=== PATIENT | female | born 1960 | race Caucasian/White ===

== ENCOUNTER 2024-05-04 08:19 | Emergency (ER) | payer BC ==
[2024-05-04 08:44] LABS: BASOPHILS ABSOLUTE AUTO 0.1 K/mm3 (0.0-0.2); EOSINOPHILS ABSOLUTE AUTO 0.2 K/mm3 (0.0-0.4); HEMATOCRIT 43.8 % (37.0-47.0); HEMOGLOBIN 14.6 gm/dl (12.0-16.0); IMMATURE GRAN ABSOLUTE AUTO 0.02 K/mm3 (0.00-0.05); IMMATURE GRAN PERCENT AUTO 0.3 % (0.0-0.4); LYMPHOCYTES ABSOLUTE AUTO 1.8 K/mm3 (1.0-4.8); LYMPHOCYTES PERCENT AUTO 28.6 % (24.0-44.0); MEAN CORPUSCULAR HEMOGLOBIN 29.1 pg (28.0-32.0); MEAN CORPUSCULAR HGB CONC 33.3 g/dl (32.0-36.0); MEAN CORPUSCULAR VOLUME 87.3 fl (83.0-99.0); MEAN PLATELET VOLUME 9.3 fl (9.4-12.3); MONOCYTES ABSOLUTE AUTO 0.5 K/mm3 (0.0-0.8); MONOCYTES PERCENT AUTO 8.1 % (0.0-8.0); NEUTROPHILS ABSOLUTE AUTO 3.7 K/mm3 (1.8-7.7); PLATELET COUNT,PLT 268 K/mm3 (150-400); RED BLOOD CELL COUNT 5.02 M/mm3 (4.10-5.30); WHITE BLOOD CELL COUNT,WBC 6.29 K/mm3 (3.9-11.3)
[2024-05-04] MEDS: Hyoscyamine 0.125 MG Tab.SL SL ONE (08:46)
[2024-05-04 09:09] LABS: A/G RATIO 1.2 (1-2); ALBUMIN 4.1 g/dl (3.4-5.0); BILIRUBIN TOTAL 0.4 mg/dL (0.2-1.0); BUN/CREATININE RATIO 16.9 (14-18); C-REACTIVE PROTEIN 0.2 mg/dL (<0.30); CALCIUM 9.1 mg/dL (8.5-10.1); CREATININE 1.3 mg/dL (0.55-1.02); EST CRCL DRUG DOSING (CG) 43.63 mL/min; PROTEIN TOTAL,TP 7.4 g/dl (6.4-8.2)
[2024-05-04 09:38] VITALS: BP 150/90; PULSE 80
== END 2024-05-04 09:37 | disposition home or self-care (01) ==
LOC: JD.ED 08:19
DX: R07.89 Other chest pain (principal); Z79.899 Other long term (current) drug therapy; Z79.85 Long-term (current) use of injectable non-insulin antidiabetic drugs
CPT/HCPCS: 36415; 71045; 74018; 80053; 84484; 85025; 86140; 93005; 99285; A9270

== ENCOUNTER 2025-07-14 15:57 | Emergency (ER) | payer BC, OTHER ==
[2025-07-14 16:14] VITALS: BP 174/91; PULSE 85
[2025-07-14] MEDS: Acetaminophen/oxyCODONE 325-5 MG Tab PO ONE (16:22)
== END 2025-07-14 18:39 | disposition home or self-care (01) ==
LOC: JD.ED 15:57
DX: S22.41XA Multiple fractures of ribs, right side, initial encounter for closed fracture (principal); S83.92XA Sprain of unspecified site of left knee, initial encounter; I10 Essential (primary) hypertension; Z79.85 Long-term (current) use of injectable non-insulin antidiabetic drugs; Z79.899 Other long term (current) drug therapy; V80.010A Animal-rider injured by fall from or being thrown from horse in noncollision accident, initial encounter; Y93.52 Activity, horseback riding
CPT/HCPCS: 71250; 73562; 99284; A9270